=== PATIENT | male | born 1970 | race Caucasian/White ===

== ENCOUNTER 2019-07-13 10:10 | Outpatient (CLI) | payer OTHER, SELFPAY ==
--- NOTE | 2019-07-13 10:15 | US_ITS ---
WS: [id number] RIGHT UPPER QUADRANT ULTRASOUND HISTORY: EPIGASTRIC PAIN COMPARISON: None available. Liver: 18.0 cm in length. Normal size and echogenicity with no intrahepatic dilatation. No mass. Gallbladder: Normally distended gallbladder with no stones or wall thickening. CBD: 0.5 cm Pancreas: Normal size and echogenicity. Right kidney: 11.2 cm in length. Normal echogenicity with no mass or hydronephrosis. Cortical cyst mi d kidney measures 8 mm. Aorta and IVC: Unremarkable. No ascites. US/US gall bladder 17177 IMPRESSION: Normal RIGHT upper quadrant ultrasound.
== END 2019-07-13 10:11 | disposition home or self-care (01) ==
LOC: RAD 10:13
PROVIDERS: PCP Family Medicine; Visit Provider Family Medicine
DX: R10.13 Epigastric pain (principal)
CPT/HCPCS: 76705

== ENCOUNTER 2019-08-10 09:20 | Day surgery (SDC) | payer OTHER, SELFPAY ==
[2019-08-09 12:32] VITALS: BMI 25.3
[2019-08-10 09:39] VITALS: BP 139/97; PULSE 73; RESP 18; TEMP 36.6; O2SAT 97
--- NOTE | 2019-08-10 09:52 | ANES.PREANE2 ---
Pre-Anesthetic Assessment Pre-Anesthetic Assessment: Height/Weight: Height 1.83 m Weight 84.822 kg Temp Pulse Resp BP Pulse Ox 97.9 F 73 18 139/97 97 08/10/19 09:39 08/10/19 09:39 08/10/19 09:39 08/10/19 09:39 08/10/19 09:39 Preop Diagnosis: Epigastric pain, diarrhea and hemorrhoid Proposed Procedure: Operation Date: 08/10/19 09:25 Proposed Procedures p EGD/COLON 19959 [id number] R10.13 R19.4 K64.9(Not Applicable) - Brian Avendano MD s Colonoscopy(Not Applicable) - Brian Avendano MD s Exam Under Anesthesia(Not Applicable) - Brian Avendano MD s Poss Hemorroidectomy(Not Applicable) - Brian Avendano MD Familial anesthetic complications: denies Last intake: Intake Last Liquid Date 08/09/19 Last Liquid Time 20:30 Last Solid Date 08/08/19 Last Solid Time 18:00 Last Intake: 00:01 Social: Social History: Alcohol (socially) and No tobacco Exam: Pre-Anes Outpt Exam: alert, oriented x 3 and clear to auscultation bilaterally Pulmonary: Pulmonary: None reported CV/HEM: CV/HEM: None reported : : None reported Hepatic: Hepatic: None reported GI: GI: GERD (controlled with meds) Metabolic: Metabolic: None reported Musc/skel: Musc/skel: None reported Neuropsych: Neuropsych: None reported Anesthetic Plan: ASA status: 2 Anesthesia: Anesthesia Evaluation, General and MAC Risk of > 500 ml blood loss (7ml/kg in children): No PFSH Anesthesia PFSH: Medical History Change in bowel habits Chronic back pain Deficiency of testosterone biosynthesis Epigastric pain GERD (gastroesophageal reflux disease) H/O compression fracture of spine Hemorrhoids Surgical History History of tonsillectomy Social History Smoking and tobacco status: never smoked Alcohol intake: never Data Anesthesia Cardiac Studies: No Data to Display
--- NOTE | 2019-08-10 09:54 | W.PM.OPSUD ---
Surgery/Procedure H&P Update DATE OF PROCEDURE: August 10, 2019 DATE H&P PERFORMED: 08/10/19 H&P UPDATE INFORMATION: I have reviewed H&P completed within last 30 days, I have examined patient prior to procedure and No changes to prior documentation PREOP DIAGNOSIS: Epigastric pain, diarrhea and hemorrhoid PRIMARY INDICATION FOR PROCEDURE: The same PLANNED PROCEDURE: Operation Date: 08/10/19 09:25 Proposed Procedures p EGD/COLON [id number] R10.13 R19.4 K64.9(Not Applicable) - MD vicki Gates Colonoscopy(Not Applicable) - Brian Avendano MD s Exam Under Anesthesia(Not Applicable) - Brian Avendano MD s Poss Hemorroidectomy(Not Applicable) - Brian Avendano MD
[2019-08-10] MEDS: sodium chloride 0.9% 1,000 ML 30 ML IV (09:59)
[2019-08-10 10:40] VITALS: BP 120/81; PULSE 82; RESP 16; TEMP 36.4; O2SAT 96
[2019-08-10 11:00] VITALS: BP 122/93; PULSE 69; RESP 17; TEMP 36.4; O2SAT 100
--- NOTE | 2019-08-10 11:25 | PC.NURSE ---
IV TYLENOL WASTED IN PYXIS. WAS NOT GIVEN TO PATIENT. CANNOT RETURN, BOTTLE BROKEN.
== END 2019-08-10 11:22 | disposition home or self-care (01) ==
PROVIDERS: PCP Family Medicine; Visit Provider Surgery
PROC: 0DJ08ZZ Inspection of Upper Intestinal Tract, Via Natural or Artificial Opening Endoscopic (ICD-10-PCS; CPT 43235; principal; 2019-08-10 09:25)
PROC: 0DJD8ZZ Inspection of Lower Intestinal Tract, Via Natural or Artificial Opening Endoscopic (ICD-10-PCS; CPT 45378; 2019-08-10 09:25)
DX: R10.13 Epigastric pain (principal); R19.7 Diarrhea, unspecified; Z80.0 Family history of malignant neoplasm of digestive organs; K44.9 Diaphragmatic hernia without obstruction or gangrene; K29.70 Gastritis, unspecified, without bleeding; K21.9 Gastro-esophageal reflux disease without esophagitis
CPT/HCPCS: 12345; 43235; 45378; J2001; J2250; J2704; J3010; J7030

== ENCOUNTER → 2019-08-16 07:47 | Day surgery (SDC) | payer OTHER, SELFPAY ==
--- NOTE | 2019-08-16 08:00 | NM_ITS ---
WS: [id number] NM hepatobiliary w phar* [id number] REASON FOR EXAM: EPIGASTRIC PAIN TECHNICAL: 7.6 mCi technetium 99 and mebrofenin and 8 ounces ensure plus FINDINGS: After the bolus injection of the mebrofenin in the gallbladder appeared relatively at appro ximately 10 minutes. Patient was given ensure plus the ejection fraction is 63%. NM/NM hepatobiliary w phar* [id number] IMPRESSION: Normal appearance of the gallbladder Normal ejection fraction 63%.
== END ==
PROVIDERS: PCP Family Medicine; Visit Provider Family Medicine
DX: R10.13 Epigastric pain (principal)
CPT/HCPCS: 78227; A9537

== ENCOUNTER 2020-04-14 14:21 | Outpatient (CLI) | payer OTHER, SELFPAY ==
[2020-04-18 14:33] LABS: Sperm Present Sperm Not Present
[2020-04-18 14:34] LABS: Sperm Immotility 0 % (50-60); Sperm Non-Progressive Motility 0 % (5-10); Sperm Progressive Motility 0 % (31-34)
== END 2020-04-14 14:22 | disposition home or self-care (01) ==
LOC: LAB 14:26
PROVIDERS: PCP Family Medicine; Visit Provider Family Medicine
DX: Z30.09 Encounter for other general counseling and advice on contraception (principal)
CPT/HCPCS: 89310

== ENCOUNTER 2024-06-15 13:04 | Outpatient (CLI) | payer OTHER, SELFPAY ==
--- NOTE | 2024-06-15 13:14 | XRR_ITS ---
PROCEDURE INFORMATION: Exam: XR Right Shoulder Exam date and time: 06/15/2024 1:25 PM Age: 53 years old Clinical indication: Pain; Shoulder; Right; Additional info: Pain in right shoulder TECHNIQUE: Imaging protocol: Radiologic exam of the right shoulder. Views: 2 or more views. COMPARISON: No relevant prior studies available. FINDINGS: Bones/joints: [id number] multilevel degenerative changes in the visualized spine. Moderate hypertrophic changes of the right acromioclavicular joint. Small osteophytes at the right glenoid. No acute fracture. No dislocation. Normal bone mineralization. Lungs: Visualized lungs are clear. Soft tissues: No soft tissue swelling or soft tissue emphysema. No radiopaque foreign body. XR/XR shoulder RT min 2V* [id number] IMPRESSION: 1. No acute fracture of the right shoulder. Followup radiographs recommended in 7-14 days if clinical concern for fracture persists. 2. Moderate degenerative changes of the right acromioclavicular joint. 3. Mild degenerative changes at the right glenoid.
== END 2024-06-15 13:05 | disposition home or self-care (01) ==
PROVIDERS: PCP Family Medicine; Visit Provider Family Medicine
DX: M19.011 Primary osteoarthritis, right shoulder (principal); M47.9 Spondylosis, unspecified; M25.711 Osteophyte, right shoulder
CPT/HCPCS: 73030